=== PATIENT | male | born 1970 | race Caucasian/White ===

== ENCOUNTER → 2018-05-21 15:40 | Outpatient (CLI) | payer OTHER, SELFPAY ==
--- NOTE | 2018-05-21 15:48 | RAD_ITS ---
STUDY: X-RAY - ABDOMEN/PELVIS REASON FOR EXAM: Male, 48 years old. Status post lithotripsy 5 weeks ago. TECHNIQUE: KUB COMPARISON: None. FINDINGS: There is a punctate radiodensity overlying the left renal mid polar calyceal position. This could be within the stool stream of the transverse colon. There is no visible calculus overlying the right kidney. There are no visible calculi along the course of the ureters. RAD/Abdomen Single View IMPRESSION: No visible calculi along the ureters. Questionable punctate calculus of the left kidney. Electronically Signed: Juventino Torrez MD at 18:15 EST Tel , Service support ,
[2018-05-21 17:51] LABS: Anion Gap 9 (5-15); BUN 15 mg/dL (7-18); BUN/Creat Ratio 13.9 RATIO (10-20); Calcium,Total 9.1 mg/dL (8.5-10.1); Chloride 106 mmol/L (98-107); Creatinine, Serum 1.08 mg/dL (0.70-1.30); EST Glomerular Filtration Rate 78 mL/min (>60); Est Glom Filt Rate - Afr Amer 94 mL/min (>60); Glucose 94 mg/dL (74-106); Potassium 3.3 mmol/L (3.5-5.1); Sodium Level 142 mmol/L (136-145)
== END ==
PROVIDERS: Family Provider Family Medicine; PCP Family Medicine; Referring Provider Urology; Visit Provider Urology
DX: N20.0 Calculus of kidney (principal)
CPT/HCPCS: 36415; 74018; 80048